=== PATIENT | female | born 1990 | race African-American/Black ===

== ENCOUNTER 2022-06-04 12:16 | Emergency (ER) | payer MEDICAID, OTHER ==
[~2022-06-04] VITALS: Ht 172.7 cm; Wt 78.0 kg
[2022-06-04 12:23] VITALS: BP 118/56
[2022-06-04] MEDS ORDERED: LIDOCAINE HCL/PF 1% 10 MG/ML 5ML VIAL INFIL ONE (13:15)
[2022-06-04] MEDS ORDERED: BACITRACIN ZINC OINT UDPKT TOP ONE (13:15)
[2022-06-04] MEDS ORDERED: CEPH500T MT (13:57)
[2022-06-04] MEDS ORDERED: TOPUD PO (14:17)
== END 2022-06-04 14:52 | disposition home or self-care (01) ==
LOC: ER 12:16
DX: L02.31 Cutaneous abscess of buttock (principal)
CPT/HCPCS: 10060; 99283; J3490; Z7610

== ENCOUNTER 2022-06-06 20:51 | Emergency (ER) | payer MEDICAID ==
[~2022-06-06] VITALS: Ht 172.7 cm; Wt 78.0 kg
[~2022-06-06 20:51] MED LIST: CEPH500T MT; TOPUD PO
[2022-06-06 21:05] VITALS: BP 104/58
== END 2022-06-06 23:20 | disposition home or self-care (01) ==
LOC: ER 20:51
DX: Z48.00 Encounter for change or removal of nonsurgical wound dressing (principal)
CPT/HCPCS: 99281